=== PATIENT | female | born 2000 | race Hispanic/Latino ===

== ENCOUNTER 2019-11-15 08:55 | Emergency (ER) | payer OTHER ==
[~2019-11-15] VITALS: Ht 160 cm; Wt 67.3 kg
--- NOTE | 2019-11-15 10:20 | REP ---
Right knee five view : There is no fracture or dislocation. Mineralization and joint spaces are normal. There are no calcifications or foreign bodies. Impression: Negative right knee . Electronically Signed by Bret Reynolds MD 11/15/2019 10:12 A
[2019-11-15] MEDS ORDERED: KETO10TAB PO (10:44)
[2019-11-15] MEDS ORDERED: KETOROLAC TROMETHAMINE 10 MG TAB PO ONE (10:45)
[2019-11-15 11:05] VITALS: BP 127/87
== END 2019-11-15 11:18 | disposition home or self-care (01) ==
LOC: EDBD 08:55 → M ED 08:55
DX: S83.001A Unspecified subluxation of right patella, initial encounter (principal); W01.0XXA Fall on same level from slipping, tripping and stumbling without subsequent striking against object, initial encounter; Y92.138 Other place on military base as the place of occurrence of the external cause

== ENCOUNTER 2020-06-19 17:24 | Emergency (ER) | payer OTHER ==
[~2020-06-19] VITALS: Ht 160 cm; Wt 68.0 kg
[~2020-06-19 17:24] MED LIST: KETO10TAB PO
[2020-06-19 17:25] VITALS: BP 118/61
[2020-06-19] MEDS ORDERED: PRENMIS3 PO (18:12)
[2020-06-19 18:35] LABS: BASO % 0.2 % (0.0-1.0); EOS % 0.1 % (0.0-3.0); HEMATOCRIT 38.3 % (36.0-47.0); LYMPH # 1.8 10^3/uL (1.5-5.0); LYMPH % 21.6 % (24.0-44.0); MEAN CORPUSCULAR HEMOGLOBIN 28.7 pg (27.0-33.0); MEAN CORPUSCULAR HGB CONC 33.9 g/dl (32.0-36.5); MEAN CORPUSCULAR VOLUME 84.5 fl (80.0-96.0); MONO # 0.5 10^3/uL (0.0-0.8); MONO % 5.7 % (0.0-5.0); PLATELET COUNT, AUTOMATED 242 10^3/uL (150-450); RED BLOOD COUNT 4.53 10^6/uL (4.00-5.40); WHITE BLOOD COUNT 8.4 10^3/uL (4.0-10.0)
== END 2020-06-19 18:47 | disposition left against medical advice (07) ==
LOC: M ED 17:24
DX: Z53.21 Procedure and treatment not carried out due to patient leaving prior to being seen by health care provider (principal)

== ENCOUNTER 2020-06-19 20:13 | Emergency (ER) | payer OTHER ==
[~2020-06-19] VITALS: Ht 160 cm; Wt 63.6 kg
[~2020-06-19 20:13] MED LIST changes: +PRENMIS3 PO
--- NOTE | 2020-06-19 22:51 | REPVR ---
PROCEDURE INFORMATION: Exam: US First Trimester, Transabdominal Exam date and time: 06/19/2020 10:18 PM Age: 19 years old Clinical indication: Lmp or gestational age (in weeks): 7; Antepartum complications; Bleeding; ; Additional info: 7wks with vag bleeding and cramping TECHNIQUE: Imaging protocol: Real-time transabdominal obstetrical ultrasound of the maternal pelvis and a first trimester , less than 14 weeks 0 days, with image documentation. COMPARISON: No relevant prior studies available. FINDINGS: Gestation: Single gestational sac demonstrated within the uterus. Single fetus within a gestational sac demonstrates a crown-rump length of 10.5 mm. 5 mm yolk sac demonstrated. Embryonic/ heart rate: 149 bpm Placenta: There is a subchorionic hemorrhage demonstrated adjacent to approximately 50% of the gestational sac. Amniotic fluid: Amniotic fluid is normal for gestational age. BIOMETRY: Gestational age (AUA): Gestational age based on crown-rump length is 7 weeks 2 days in this patient who is 7 weeks 0 days based on LMP of 05/01/2020. MATERNAL: Uterus: Unremarkable. Cervix: Unremarkable. Right adnexa: Unremarkable. Left adnexa: Unremarkable. Intraperitoneal space: No intraperitoneal free fluid. IMPRESSION: Small subchorionic hemorrhage in this 7 week 2 day gestational age based on crown-rump length. size is concordant with LMP. Electronically signed by: Landen Horton On 06/19/2020 22:50:54 PM
[2020-06-19 23:53] VITALS: BP 118/64
== END 2020-06-19 23:46 | disposition home or self-care (01) ==
LOC: M ED 20:13
DX: O20.8 Other hemorrhage in early pregnancy (principal); Z3A.01 Less than 8 weeks gestation of pregnancy

== ENCOUNTER → 2020-08-30 | Outpatient (CLI) | payer SELFPAY | LOC: M LABSMTC 10:32 | PROVIDERS: ATTEND Pediatrics | DX: Z20.828 Contact with and (suspected) exposure to other viral communicable diseases (principal) ==

== ENCOUNTER → 2020-09-23 | Outpatient (CLI) | payer SELFPAY | LOC: M LABSMTC 09:56 | PROVIDERS: ATTEND Pediatrics | DX: Z20.828 Contact with and (suspected) exposure to other viral communicable diseases (principal) ==

== ENCOUNTER → 2020-11-02 | Outpatient (CLI) | payer SELFPAY | LOC: M LABSMTC 11:10 | PROVIDERS: ATTEND Pediatrics | DX: Z20.822 Contact with and (suspected) exposure to COVID-19 (principal) ==

== ENCOUNTER → 2021-01-03 | Outpatient (CLI) | payer SELFPAY | LOC: M LABSMTC 10:02 | PROVIDERS: ATTEND Pediatrics | DX: Z20.822 Contact with and (suspected) exposure to COVID-19 (principal) ==

== ENCOUNTER → 2021-01-17 | Outpatient (CLI) | payer SELFPAY | LOC: M LABSMTC 14:27 | PROVIDERS: ATTEND Pediatrics | DX: Z11.52 Encounter for screening for COVID-19 (principal) ==

== ENCOUNTER 2021-01-27 18:31 | Inpatient (IN) | payer OTHER, SELFPAY ==
[~2021-01-27] VITALS: Ht 160 cm; Wt 80.6 kg
[2021-01-27 19:05] VITALS: BP 119/64
[2021-01-27] MEDS ORDERED: LIDOCAINE 1% MDV 20ML VIAL INFIL PRN (22:50)
[2021-01-27] MEDS ORDERED: OXYTOCIN DRIP 30 UNITS in IV 1 EA IV PRN (22:50)
[2021-01-27 22:57] VITALS: BP 135/85
--- NOTE | 2021-01-27 23:00 | HPEPDOC ---
Obstetrical History & Physical General Date of Admission January 27, 2021 at 22:08 History of Present Illness Ms. Nelson is a 20yo at 38+5 presenting initially for vaginal s potting that has now resolved, but was found to have recurrent decelerations and is being admitted for CAT II FHR. She endorsed contractions q10 min but they started last night and have not intensified. She denied LOF or decreased FM. She denied n/v/d, cp, sob, mustafa, visual changes, f/c, urinary sx. 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: History of STD (chlamydia) Past Medical History Medical History mild intermittent asthma, history of chlamydia, migraines with aura Surgical History: [place] teeth Family History Significant Family History: No pertinent family hx Social History Marital Status: Single Family situation: Spouse/partner home Psychosocial History: No pertinent psych hx * Smoker: non-smoker Alcohol: Denies Drugs: denies Imunizations Tdap status: current Influenza Status: current Allergies Coded Allergies: No Known Allergies (Unverified , 11/15/19) Medications Scheduled 95/Iron Fum/Folic/Dha ( + Dha Combo Pack) 1 Each Combo..pkg, 1 TAB PO DAILY Physical Examination Physical Examination GENERAL: Alert and oriented times three. BREAST: . ABDOMEN: Gravid and non-tender to touch. FETUS: Is vertex (VTX) by sterile vaginal examination (SVE), fetus is vertex (VTX) by US HEART RATE: Regular rate and rhythm. LUNGS: Clear to auscultation (CTA). EXTREMITIES: No edema. No clonus. Vital Signs/I&O Vital Signs Date Time Temp Pulse Resp B/P (MAP) Pulse Ox O2 Delivery O2 Flow Rate FiO2 01/27/21 19:05 97.8 86 18 119/64 (82) Laboratory Data 24H LABS Laboratory Tests 2 01/27/21 22:19: Serology Scanned Report Hepatitis B Testing Urine Culture: No Growth Pertinent Laboratoy Data Blood Type: A+ RBC Antibody Screen: Negative HIV: Negative Hepatitis B: Negative Hepatitis C: Negative Rapid Plasma Reagin: Immune Varicella: Immune Chlamydia/Gonorrhea: Positive (negative test of cure) Group B Streptococcus: Negative Quad Screen Test: Negative Cystic Fibrosis: Negative Glucose Tolerance Test: 99 Anatomy Ultrasound Placenta Location: Anterior Normal Anatomy: Yes Estimated Weight (grams): 3200 Vaginal Examination Dilation: 3 cm Effacement: 50% Station: -3 Cervical Consistency: Medium Cervical Position: Middle Presentation: Cephalic presentation Assessment Heart Rate (FHR): 130 Variability: Moderate Accelerations: Positive Decelerations: Late (occasional), Variable (occasional) Tocometer Contractions: Yes Frequency: irregular Multi-drug resistant Organism: No history of MDRO Assessment/Plan Assessment Ms. Nelson is a 20yo at 38+5 presenting initially for vaginal spotting that has now resolved, but was found to have recurrent decelerations and is being admitted for CAT II FHR (occasional variable and late decels). Contractions irregular on toco. VS normal. SVE 1/T/H and 3/50/-3 on repeat exam. There was no vaginal bleeding or old blood on spec exam. MVP 4.3cm. Will recheck in 2h and augment labor as indicated. APC 1. chlamydia in early , ANURADHA negative, negative qTrimester screening 2. asthma, remote history not on meds Rh pos, GBS neg, ceph by US, EFW 3200, placenta anterior Plan Admit and orient. 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 Diet: clears. Group B Streptococcus (GBS) [negative]. Labs and intravenous (IV) per unit protocol. Counseled on Pitocin and induction of labor (IOL). Lactated Ringers (LR): as indicated Anticipate [normal spontaneous delivery ()]. C-S as appropriate. ALCIRA GALINDO DO January 27, 2021 23:00
[2021-01-27 23:58] VITALS: BP 115/73
[2021-01-28] VITALS (84 sets, daily range): BP systolic 87–148; BP diastolic 50–96
[2021-01-28] MEDS ORDERED: OXYTOCIN DRIP 30 UNITS in IV 1 EA IV SCH (00:05)
[2021-01-28 00:08] LABS: BASO % 0.2 % (0.0-1.0); EOS % 0.2 % (0.0-3.0); HEMATOCRIT 36.1 % (36.0-47.0); HEMOGLOBIN 11.4 g/dl (12.0-15.5); LYMPH % 19.4 % (24.0-44.0); MEAN CORPUSCULAR HGB CONC 31.6 g/dl (32.0-36.5); MEAN CORPUSCULAR VOLUME 82.2 fl (80.0-96.0); MONO # 0.8 10^3/uL (0.0-0.8); MONO % 7.8 % (2.0-8.0); NEUTROPHILS # 7.3 10^3/uL (1.5-8.5); NEUTROPHILS % 71.8 % (36.0-66.0); PLATELET COUNT, AUTOMATED 288 10^3/uL (150-450); RED BLOOD COUNT 4.39 10^6/uL (4.00-5.40); WHITE BLOOD COUNT 10.2 10^3/uL (4.0-10.0)
--- NOTE | 2021-01-28 01:40 | IPNPDOC ---
Obstetrical Progress Note Date of Service January 28, 2021 Subjective To room for routine assessment. Patient reports more pain with contractions. Objective Vital Signs Date Time Temp Pulse Resp B/P (MAP) Pulse Ox O2 Delivery O2 Flow Rate FiO2 01/27/21 19:05 97.8 86 18 119/64 (82) Assessment Heart Rate (FHR): 130 Variability: Moderate Accelerations: Positive Decelerations: Late Heart Rate Tracing: Category I Tocometer Contractions: Yes Frequency: regular Sterile Vaginal Examination Dilation: 3 cm Effacement (%): 70% Station: -3 Cervical Consistency: Soft Cervical Position: Middle Postion/Presentation: Cephalic presentation Assessment and Plan Status: Reassuring Anticipate: Vaginal Delivery Additional Comments SVE performed for routine assessment and unchanged, starting pitocin for labor augmentation. NST is CAT I for occasional late and variable decels but they are intermittent and variability is moderate, it is overall reassuring. Discussed pain control, patient does not desire epidural or IV pain medications. Will reassess in 4-6h or sooner if clinically indicated. ALCIRA GALINDO DO January 28, 2021 01:40
[2021-01-28] MEDS: LR 1,000 ML IV SCH ×6 (01:56→22:29)
[2021-01-28] MEDS ORDERED: ONDANSETRON 4MG/2ML VIAL IV ONE (03:05)
--- NOTE | 2021-01-28 06:08 | IPNPDOC ---
Obstetrical Progress Note Date of Service January 28, 2021 Subjective To room for routine assessment. Patient reports increased pressure. Objective Vital Signs Date Time Temp Pulse Resp B/P (MAP) Pulse Ox O2 Delivery O2 Flow Rate FiO2 01/28/21 04:57 74 132/71 (91) 01/28/21 04:31 97.5 18 Assessment Heart Rate (FHR): 130 Variability: Moderate Accelerations: Positive Decelerations: Late, Variable Heart Rate Tracing: Category II Tocometer Contractions: Yes Frequency: regular Sterile Vaginal Examination Dilation: 5 cm Effacement (%): 70% Station: -3 Cervical Consistency: Soft Cervical Position: Middle Postion/Presentation: Cephalic presentation Assessment and Plan Status: Reassuring Anticipate: Vaginal Delivery Additional Comments CAT II tracing for intermittent, rare late and variable decels. Overall moderate variability and reassuring. VS normal. SVE 5cm. Pit at 4. AROM performed clear. Will reassess in 4-6h or sooner if clinically indicated. ALCIRA GALINDO DO January 28, 2021 06:08
--- NOTE | 2021-01-28 07:48 | IPNPDOC ---
Obstetrical Progress Note Date of Service January 28, 2021 Subjective 20 yo at 38w6d with MARLA of 05 FEB 2021 admitted for labor. She is without any complaints at this time. Breathing through her contractions. She has supportive family at the bedside. Objective Vital Signs Date Time Temp Pulse Resp B/P (MAP) Pulse Ox O2 Delivery O2 Flow Rate FiO2 01/28/21 07:02 97.7 61 20 134/69 (90) 97 Room Air Pitocin at 4 mu/min Light meconium noted during cervical exam Assessment Heart Rate (FHR): 145 Variability: Moderate Accelerations: Positive Decelerations: Early, Variable Tocometer Contractions: Yes Frequency: other (every 3-4 minutes) Sterile Vaginal Examination Dilation: 6 cm Effacement (%): 70% Station: -1 Cervical Consistency: Soft Cervical Position: Middle Postion/Presentation: Cephalic presentation Assessment and Plan Age: 20 : 1 Term: 0 Pre-term: 0 Abortions: 0 Livin EGA at Admission: 38 (+5) Weeks & Days 38w6d Status: Reassuring Group B Streptococcus: Negative Anticipate: Vaginal Delivery DEVORAH KNIGHT CNM January 28, 2021 7:47 am
[2021-01-28] MEDS ORDERED: FENTANYL 2MCG/ML ROPIVACAINE 0.2% IN 0.9% NACL 100ML IVBAG As Ordered ONE (09:39)
--- NOTE | 2021-01-28 11:08 | IPNPDOC ---
Obstetrical Progress Note Date of Service January 28, 2021 Subjective 20 yo at 38w6d with MARLA of 05 FEB 2021 admitted for labor. She is comfortable with her epidural. She has supportive family at the bedside. She was having decels after her epidural. Objective Vital Signs Date Time Temp Pulse Resp B/P (MAP) Pulse Ox O2 Delivery O2 Flow Rate FiO2 01/28/21 07:56 62 20 123/74 (90) 01/28/21 07:02 97.7 97 Room Air IUPC and FSE placed without difficulty Pitocin has been off Assessment Heart Rate (FHR): 140 Variability: Moderate Accelerations: Present Decelerations: Early, Variable Tocometer Contractions: Yes Frequency: irregular, every 3-7 min. Sterile Vaginal Examination Dilation: 8 cm Effacement (%): 70% Station: -2 Cervical Consistency: Medium Cervical Position: Middle Postion/Presentation: Cephalic presentation Assessment and Plan Age: 20 : 1 Term: 0 Pre-term: 0 Abortions: 0 Livin Weeks & Days 38w6d Group B Streptococcus: Negative Anticipate: Vaginal Delivery Additional Comments Will continue to monitor and consider restarting pitocin at 1130 DEVORAH KNIGHT CNM January 28, 2021 11:02
[2021-01-28] MEDS ORDERED: ePHEDrine SULFATE 25 MG/5 ML(5MG/ML) SYRINGE As Ordered ONE (11:18)
[2021-01-28] MEDS ORDERED: LACTATED RINGER'S 1000 ML IV PRN (11:25)
[2021-01-28] MEDS ORDERED: ONDANSETRON 4MG/2ML VIAL IV PRN ×3 (11:25→18:25)
[2021-01-28] MEDS ORDERED: FENTANYL/ROPIVACAINE/NACL BAG 100 ML EPIDURAL SCH (11:25)
[2021-01-28] MEDS ORDERED: REFRIGERATOR IV KEYS XX PRN (11:25)
[2021-01-28] MEDS ORDERED: NALOXONE INJ 0.4MG/1ML VIAL (J2310 PER 1MG) IV PRN ×3 (11:25→17:20)
[2021-01-28] MEDS ORDERED: EPIDURAL COMMENT XX SCH (11:25)
[2021-01-28] MEDS ORDERED: diphenhydrAMINE 50MG/ML VIAL (J1200) IV PRN ×3 (11:25→18:25)
[2021-01-28] MEDS ORDERED: EPIDURAL/PCA KEYS XX PRN (11:25)
[2021-01-28] MEDS: ePHEDrine SULFATE 25 MG/5 ML(5MG/ML) SYRINGE IV PRN ×3 (11:29→11:31)
--- NOTE | 2021-01-28 13:49 | IPNPDOC ---
Text Note Date of Service The patient was seen on 01/28/21. NOTE 01/28/2021 1340 hr assessment of progress. 20 y.o at 38.6 arrived in sponta neous labor, no decreased movement, no loss of fluid. Presently having category 2 strip variable decelerations, occasional late with recovery. Patient on intermittent Pitocin, maximum dose 4 munits baby will not tolerate more. Had amnio infusion Recheck tight 7-8 cm with moulding -3 station. Plan attempt to increase Pitocin monitor contractions if no progress or looks like compromise consider cs due to remote from delivery persistent category 2 strip VS,Fishbone, I+O VS, Fishbone, I+O Laboratory Tests 01/27/21 23:27 Vital Signs Date Time Temp Pulse Resp B/P (MAP) Pulse Ox O2 Delivery O2 Flow Rate FiO2 01/28/21 13:14 92 114/84 (94) 01/28/21 12:40 98.0 20 98 Room Air Jacky Stern MD January 28, 2021 13:48
--- NOTE | 2021-01-28 15:43 | IPNPDOC ---
Obstetrical Progress Note Date of Service January 28, 2021 Subjective 20 yo at 38w6d admitted for labor. She remains comfortable with her epidural. She has supportive family at the bedside. Objective Vital Signs Date Time Temp Pulse Resp B/P (MAP) Pulse Ox O2 Delivery O2 Flow Rate FiO2 01/28/21 14:53 83 16 124/70 (88) 01/28/21 12:40 98.0 98 Room Air Pitocin was turned off for recurrent decels. She has been having early and variable decels with each contraction. Her MVUs are inadequate and she has not been able to have pitocin increased beyond 4 mu/min without having multiple decels. Assessment Heart Rate (FHR): 145 Variability: Moderate Accelerations: Present Decelerations: Early, Variable, Recurrent Tocometer Contractions: Yes (every 3-5 minutes) Sterile Vaginal Examination Dilation: 8 cm Effacement (%): 80% Station: -1 Cervical Consistency: Soft Cervical Position: Middle Postion/Presentation: Cephalic presentation Assessment and Plan Age: 20 : 1 Term: 0 Pre-term: 0 Abortions: 0 Livin Weeks & Days 38w6d Group B Streptococcus: Negative Additional Comments Discussed clinical status with patient and we discussed high likelihood that she would need to have a section. I discussed with her that I turned the pitocin off to allow for the baby to recover and that her cervical exam has been unchanged throughout the day despite multiple interventions. She states that she is ok with having a section. Discussed and updated patient status with Dr. Stern, who states he will come to see the patient. DEVORAH KNIGHT CNM January 28, 2021 15:43
[2021-01-28] MEDS ORDERED: BUPIVACAINE HCL 0.25% 10ML VIAL SC SCH (16:00)
[2021-01-28] MEDS ORDERED: ACETAMINOPHEN 650 MG SUPP PR SCH (16:00)
[2021-01-28] MEDS ORDERED: BICITRA 30ML SOLN UDC PO ONE (16:00)
[2021-01-28] MEDS ORDERED: AZITHROMYCIN INJ 500 MG, VIAL MATE ADAPTER 1 EACH in NS 250 ML IV ONE (16:00)
[2021-01-28] MEDS ORDERED: LR 1,000 ML IV SCH ×2 (16:00→18:25)
[2021-01-28] MEDS ORDERED: ceFAZolin SOD 2 GM in IV 1 EA IV ONE (16:00)
--- NOTE | 2021-01-28 16:12 | IPNPDOC ---
Text Note Date of Service The patient was seen on 01/28/21. NOTE 1600 01/28/2021 PATIENT HAS NON REASSURING FHRM AND FAILURE TO PROGRESS UNABLE TO INCREASE PITOCIN PLANNED CS DISCUSSED RISKS BENEFITS INCLUDE HEMORRHAGE INFECTION PERFORATION REOPERATION REMOTE BLOOD TRANSFUSION REMOTE HYSTERECTOMY. REMOTE REMOTE LACERATION TO FETUS . ADMISSION TO NICU . NOTIFIED NICU NURSERY EXPRESSED UNDERSTANDING SIGNED CONSENT VS,Fishbone, I+O VS, Fishbone, I+O Laboratory Tests 01/27/21 23:27 Vital Signs Date Time Temp Pulse Resp B/P (MAP) Pulse Ox O2 Delivery O2 Flow Rate FiO2 01/28/21 14:53 83 16 124/70 (88) 01/28/21 12:40 98.0 98 Room Air Jacky Stern MD January 28, 2021 16:11
[2021-01-28] MEDS ORDERED: ONDANSETRON 4MG/2ML VIAL As Ordered ONE ×2 (16:25→17:15)
[2021-01-28] MEDS ORDERED: OXYTOCIN 30 UNITS IN 0.9% NaCl 500ML IV BAG (J2590) As Ordered ONE (16:44)
[2021-01-28] MEDS ORDERED: KETOROLAC 60MG 2ML VIAL As Ordered ONE (16:56)
[2021-01-28] MEDS ORDERED: MORPHINE PRES-FREE INJ 10 MG/10 ML VIAL (J2274) As Ordered ONE (17:16)
[2021-01-28] MEDS ORDERED: METOCLOPRAMIDE INJ 10MG/2ML VIAL (J2765 PER 1) IV PRN (17:20)
[2021-01-28] MEDS ORDERED: NALBUPHINE HCL 10 MG/ML AMP (J2300) IV PRN ×2 (17:20→18:25)
[2021-01-28 17:27] LABS: CORD GAS ABE A -3.3; CORD GAS HCO3 A 24.7 MEQ/L; CORD GAS O2 SAT A 31.9 %; CORD GAS PCO2 A 55.8 mmHg; CORD GAS PH A 7.264 UNITS; CORD GAS SBC A 20.1 MEQ/L; CORD GAS TCO2 A 26.4 MEQ/L
[2021-01-28 17:28] LABS: CORD GAS ABE V -3.1; CORD GAS HCO3 V 23.3 MEQ/L; CORD GAS O2 SAT V 78.6 %; CORD GAS PH V 7.322 UNITS; CORD GAS SBC V 21.5 MEQ/L; CORD GAS TCO2 V 24.7 MEQ/L
[2021-01-28] MEDS ORDERED: ANUSOL HC CREAM 30GM TOP PRN (18:15)
[2021-01-28] MEDS ORDERED: RHOGAM 300 MCG (1500 IU) INJ (J2790) IM SCH (18:15)
[2021-01-28] MEDS ORDERED: MOM 30ML SUSPENSION UDC PO PRN (18:15)
[2021-01-28] MEDS ORDERED: ACETAMINOPHEN 500 MG TAB PO PRN (18:15)
[2021-01-28] MEDS ORDERED: SIMETHICONE 80MG CHEW TAB PO PRN (18:15)
[2021-01-28] MEDS ORDERED: OXYTOCIN INJ 10 UNITS/ML VIAL (J2590) IV ONE (18:15)
[2021-01-28] MEDS ORDERED: DOCUSATE SODIUM 100MG CAPSULE PO PRN (18:15)
[2021-01-28] MEDS ORDERED: PERCOCET 5MG/325MG TAB PO PRN ×2 (18:15→18:25)
[2021-01-28] MEDS ORDERED: ACETAMINOPHEN TAB 650MG DOSE (2X325MG) PO PRN (18:15)
[2021-01-28] MEDS ORDERED: MEASLES,MUMPS,RUBELLA VACCINE INJ (MMR-II) (90707) SC SCH (18:15)
[2021-01-28] MEDS ORDERED: OXYTOCIN DRIP 30 UNITS in IV 1 EA IV ONE (18:15)
[2021-01-28] MEDS ORDERED: ACETAMINOPHEN 650 MG SUPP PR PRN (18:15)
[2021-01-28] MEDS ORDERED: MEPERIDINE INJ 25 MG/ML VIAL (J2175) IV PRN (18:25)
[2021-01-28] MEDS ORDERED: ePHEDrine SULFATE 25 MG/5 ML(5MG/ML) SYRINGE IV PRN (18:25)
[2021-01-28] MEDS ORDERED: fentaNYL 100 MCG/2 ML INJECTION (J3010) IV PRN (18:25)
[2021-01-29] MEDS: KETOROLAC 30 MG/ML 1ML VIAL IV SCH ×3 (01:11→17:41)
[2021-01-29 02:00] VITALS: BP 106/59
[2021-01-29] MEDS: LR 1,000 ML IV SCH (02:15)
[2021-01-29 05:57] VITALS: BP 116/61
--- NOTE | 2021-01-29 06:44 | IPNPDOC ---
Progress Note Date of Service: January 29, 2021 Day#: 1 Progress Note SUBJECT: 20-year-old 1 now Para 1 status day 1 delivery at 38.3 weeks' on 01/28/21 of a male 6 pounds 12 ounces 3070 grams) with post cs for NRFHT failure to dilate meconium fluid , doing well day # 1 . She has been ambulating, voiding spontaneously without issue and tolerating regular diet. Breast feeding without issue. Reports lochia is [like a normal period]. Patient is ambulating well. [Reports some cramping with . post op pain controlled by analgesics Voiding and stooling without difficulty]. OBJECTIVE: VITAL SIGNS: Within normal limits, afebrile. Alert and oriented times three. Breath sounds clear to auscultation. Heart rate: Regular rate and rhythm, no murmurs, rubs or gallops. Abdomen: Fundus firm at U-2. Soft, NTTP. [Minimal] lochia. ASSESSMENT: 20-year-old 1 now Para 1 status post complicated by NRFHT and failure to dilate for primary cs delivery after presenting in active labor with intact membranes delivered at 38.3 weeks', doing well on day 1. Vitals within normal limits, afebrile, hemodynamically stable with no evidence of infection. PLAN: 1. Discharge tomorrow 2. Tylenol and Motrin for pain.Percocet for pain 3. Encourage breast feeding and ambulation. 4. control at 6 weeks pp 5. 2 week incision check and 6 week pp check 6. Discussed return precautions at length. VS, I&O, 24H, [facility] Vital Signs/I&O Vital Signs Date Time Temp Pulse Resp B/P (MAP) Pulse Ox O2 Delivery O2 Flow Rate FiO2 01/29/21 05:57 97.1 99 16 116/61 (79) 98 Room Air I&O- Last 24 Hours up to 6 AM 01/29/21 06:00 Intake Total 3531.1 ml Output Total 4175 ml Balance -643.9 ml Laboratory Data 24H LABS Laboratory Tests 2 01/28/21 17:14: Cord Arterial Blood pH 7.264, Cord Arterial Blood PCO2 55.8, Cord Arterial Blood PO2 18.0, Cord Arterial Blood HCO3 24.7, Cord Arterial Blood Total CO2 26.4, Cord Arterial Blood Base Excess -3.3, Cord Arterial Base Excess (Standard 20.1, Cord Arterial Bld Oxygen Saturation 31.9, Cord Venous Blood pH 7.322, Cord Venous Blood PCO2 46.0, Cord Venous Blood PO2 35.0, Cord Venous Blood HCO3 23.3, Cord Venous Blood Total CO2 24.7, Cord Venous Base Excess (Actual) -3.1, Cord Venous Base Excess (Standard) 21.5, Cord Venous Blood Oxygen Saturation 78.6 Jacky Stern MD January 29, 2021 06:43
[2021-01-29 07:11] LABS: HEMATOCRIT 27.3 % (36.0-47.0); MEAN CORPUSCULAR HEMOGLOBIN 25.8 pg (27.0-33.0); MEAN CORPUSCULAR HGB CONC 31.1 g/dl (32.0-36.5); PLATELET COUNT, AUTOMATED 200 10^3/uL (150-450); RED BLOOD COUNT 3.29 10^6/uL (4.00-5.40); WHITE BLOOD COUNT 12.3 10^3/uL (4.0-10.0)
[2021-01-29 07:17] LABS: HEMOGLOBIN 8.5 g/dl (12.0-15.5)
[2021-01-29] MEDS: PRENATAL VITAMINS CHEWABLE TABLET PO SCH (08:44)
[2021-01-29 10:00] VITALS: BP 90/54
--- NOTE | 2021-01-29 10:14 | RO ---
OPERATIVE NOTE DATE OF OPERATION: 01/28/2021 PREOPERATIVE DIAGNOSIS: Non-reassuring heart tones, failure to descend, failure to dilate, meconium stained lochia, category II strip. POSTOPERATIVE DIAGNOSIS: Non-reassuring heart tones, failure to descend, failure to dilate, meconium stained lochia, category II strip, plus tight nuchal cord, meconium staining of fetus and placenta. OPERATION PROPOSED: Primary section. OPERATION PERFORMED: Primary section. SURGEON: Jacky Stern MD OPERATIONS SPECIALISTS: Dr. Kern for extraction, retraction and visualization. ANESTHESIA: Epidural plus local anesthetic for intraperitoneal procedures. ESTIMATED BLOOD LOSS: 500 mL. DESCRIPTION OF PROCEDURE: After adequate timeout, prepped and draped in the supine position. Zheng catheter to bladder draining clear urine. Acetaminophen suppository 1300 mg per rectum. Appropriate antibiotics preoperatively. A Pfannenstiel incision was made two fingerbreadths above the symphysis pubis, passing through abdominal layers. What we noticed was there is extensive edema suprapubically and down through the bladder flap area, through the fascia, through the muscle and through the peritoneum making the anatomy quite challenging to find the opening into the peritoneal cavity. Once open into the peritoneal cavity, we noticed that the lower uterine segment was edematous, had some petechiae from pushing; the baby's head never got engaged in the pelvis. We attempted to put a Mobius in but were unable to because of significant swelling. Therefore, we removed a portion of the Mobius and then reflected the bladder flap down anteriorly. A low transverse incision was made into the uterus. Meconium thick poured out of the incisional site. It was yellow and particulate green. Dr. Gabriel was called for resuscitation. We were unable to extract the baby's head because of the edema; therefore, we placed the Sam-Muniz forceps on the appropriate position and guided the baby's head out with fundal pressure. The forceps were immediately removed. The baby had a tight nuchal cord as well as one around the body. The baby was completely stained yellow and green. Cord was yellow and green and so was the placenta. The baby was handed off to the nurse. Apgars were 4, 9 and 9. Arterial pH was 7.26, base excess -3.3, venous pH 7.32, base excess -3.1. The placenta was manually removed. Calcifications were noted throughout the entire placenta despite the fact that is 38 and 6 weeks of gestation. The uterus contracted well down under Pitocin. The lower segment was oversewn in the usual fashion in two layers, and then reperitonealization was performed. With instrument and pad count correct, both ovaries appeared to be normal, the abdomen was closed with running sutures for the peritoneum; same for the fascia. We irrigated with 200 mL of normal saline, then a running stitch for the subcutaneous tissue and Dexon 4-0 for the skin. Marcaine 0.25%, 10 mL to the skin and a Tegaderm was placed on the abdomen. The patient and baby tolerated the procedure well.
[2021-01-29 14:00] VITALS: BP 114/71
[2021-01-29 18:00] VITALS: BP 97/55
[2021-01-29 22:00] VITALS: BP 126/66
[2021-01-30] MEDS ORDERED: IBUPROFEN 800 MG TAB PO PRN (01:30)
[2021-01-30] MEDS ORDERED: IBUPROFEN 600MG TAB PO PRN (01:30)
[2021-01-30 02:00] VITALS: BP 98/55
[2021-01-30 06:00] VITALS: BP 100/61
--- NOTE | 2021-01-30 06:43 | IPNPDOC ---
Progress Note Date of Service: January 30, 2021 Day#: 2 Progress Note SUBJECT: Ms. Nelson is a 20yo POD2 after primary for arrest of dilation. She has been ambulating, voiding spontaneously without issue and tolerating regular diet. Breast feeding without issue. Reports lochia is like a normal period. Patient is ambulating well. Reports some cramping with . Denies any pain. Voiding and passing flatus without difficulty. OBJECTIVE: VITAL SIGNS: Within normal limits, afebrile. Alert and oriented times three. No increased WOB. Heart rate: non-tachycardic. Abdomen: Fundus firm at U-2. Soft, NTTP. Pfannensteil incision is covered with optifoam dressing and has minimal strikethrough. Minimal lochia. ASSESSMENT: Ms. Nelson is a 20yo POD2 after primary for arrest of dilation. Vitals within normal limits, afebrile, hemodynamically stable with no evidence of infection. PLAN: 1. Discharge to home today. 2. Tylenol and Motrin for pain. Oxycodone for breakthrough. 3. Encourage breast feeding and ambulation. 4. Desires interval mirena for contraception. 5. Routine PP visit in 2 and 6 weeks in clinic. 6. Discussed return precautions and activity limitations to include pelvic rest and lifting restrictions at length. VS, I&O, 24H, Fishbone Vital Signs/I&O Vital Signs Date Time Temp Pulse Resp B/P (MAP) Pulse Ox O2 Delivery O2 Flow Rate FiO2 01/30/21 02:00 97.6 100 14 98/55 (69) 98 Room Air Laboratory Data 24H LABS Laboratory Tests 2 01/29/21 06:59: Nucleated Red Blood Cells % (auto) 0.0 CBC/BMP Laboratory Tests 01/29/21 06:59 ALCIRA GALINDO DO January 30, 2021 06:43
--- NOTE | 2021-01-30 06:47 | OBDS ---
[facility] Obstetrical Discharge Sum. Obstetrical Discharge Summary Date: January 30, 2021 A/P, Post Course List any complications Ms. Nelson is a 20yo after primary for arrest of dilation and non-reassuring heart tones. She was initially admitted at 38 weeks for a category II tracing for induction. She has been ambulating, voiding spontaneously without issue and tolerating regular diet. Breast feeding without issue. Reports lochia is like a normal period. Patient is ambulating well. Reports some cramping with . Denies any pain. Voiding and passing flatus without difficulty. Vitals within normal limits, afebrile, hemodynamically stable with no evidence of infection. PREOPERATIVE DIAGNOSIS: Non-reassuring heart tones, failure to descend, failure to dilate, meconium stained lochia, category II strip. POSTOPERATIVE DIAGNOSIS: Non-reassuring heart tones, failure to descend, failure to dilate, meconium stained lochia, category II strip, plus tight nuchal cord, meconium staining of fetus and placenta. Apgars were 4, 9 and 9. Arterial pH was 7.26, base excess -3.3, venous pH 7.32, base excess -3.1. Antepartum Course 1. chlamydia in early , ANURADHA negative, negative qTrimester screening 2. asthma, remote history not on meds PLAN: 1. Discharge to home today. 2. Tylenol and Motrin for pain. Oxycodone for breakthrough. 3. Encourage breast feeding and ambulation. 4. Desires interval mirena for contraception. 5. Routine PP visit in 2 and 6 weeks in clinic. 6. Discussed return precautions and activity limitations to include pelvic rest and lifting restrictions at length. ALCIRA GALINDO DO January 30, 2021 06:47
[2021-01-30] MEDS: PRENATAL VITAMINS CHEWABLE TABLET PO SCH (09:38)
--- NOTE | 2021-02-01 19:31 | IPN ---
PROGRESS NOTE DATE: 01/29/2021 SUBJECTIVE: This patient and requested circumcision of her male infant. After discussing the risks and benefits of circumcision, the medical and nonmedical indications, the penile block and aftercare, expressed understanding of penile block, aftercare and bleeding. All questions were answered. A 20 minute discussion. We await clearance by the child nurse.
== END 2021-01-30 12:25 | disposition home or self-care (01) | DRG 773 ==
LOC: M LDO 18:31 → M LDI 22:08 → M OBS 01-28 19:25
PROVIDERS: ADMIT Obstetrics & Gynecology; ATTEND Obstetrics & Gynecology
PROC: 10907ZC Drainage of Amniotic Fluid, Therapeutic from Products of Conception, Via Natural or Artificial Opening (ICD-10-PCS; 2021-01-28)
PROC: 10D00Z1 Extraction of Products of Conception, Low, Open Approach (ICD-10-PCS; principal; 2021-01-28 16:25)
DX: O76 Abnormality in fetal heart rate and rhythm complicating labor and delivery (principal); Z3A.38 38 weeks gestation of pregnancy; Z37.0 Single live birth; O77.0 Labor and delivery complicated by meconium in amniotic fluid; O62.0 Primary inadequate contractions; O12.04 Gestational edema, complicating childbirth; O69.1XX0 Labor and delivery complicated by cord around neck, with compression, not applicable or unspecified; O69.82X0 Labor and delivery complicated by other cord entanglement, without compression, not applicable or unspecified

== ENCOUNTER → 2021-02-02 | Outpatient (CLI) | payer SELFPAY | LOC: M LABSMTC 11:48 | PROVIDERS: ATTEND Pediatrics | DX: Z20.822 Contact with and (suspected) exposure to COVID-19 (principal) ==